=== PATIENT | male | born 1955 | race Caucasian/White ===

== ENCOUNTER 2017-10-06 13:17 | Day surgery (SDC) | payer OTHER ==
[~2017-10-06] VITALS: Ht 168.9 cm; Wt 118.6 kg
[2017-10-06 13:58] VITALS: BP 129/74; PULSE 80; TEMP 97.7
[2017-10-06] MEDS ORDERED: XALATAN EYE DROPS OU (14:05)
[2017-10-06] MEDS ORDERED: COUMADIN 77.5 MG/TAB PO (14:06)
[2017-10-06] MEDS ORDERED: BACTRIM PED152.22 ML PO (14:14)
[2017-10-06] MEDS ORDERED: MULTI VITAMINS1 TAB PO (14:15)
[2017-10-06 17:15] VITALS: BP 134/68; PULSE 85; TEMP 98.5
[2017-10-06 17:30] VITALS: BP 134/68; PULSE 84; TEMP 98
[2017-10-06 17:45] VITALS: BP 128/70; PULSE 78; TEMP 98
[2017-10-06 18:00] VITALS: BP 128/77; PULSE 75; TEMP 98
== END 2017-10-06 19:21 | disposition home or self-care (01) ==
LOC: SDCO 13:17 → SURG 17:10 → SDCO 19:21
DX: N35.9 Urethral stricture, unspecified (principal); G47.33 Obstructive sleep apnea (adult) (pediatric); M10.9 Gout, unspecified; Z79.01 Long term (current) use of anticoagulants; Z86.718 Personal history of other venous thrombosis and embolism
CPT/HCPCS: OP; C1726; C1769; J0690; J1100; J2704; J3010; J7120